=== PATIENT | female | born 1950 | race Caucasian/White ===

== ENCOUNTER 2016-09-27 06:50 | Inpatient (IN) | payer MEDICARE, OTHER ==
[2016-09-22 16:03] LABS: BASOPHILS 0.5 %; BASOPHILS ABSOLUTE 0.05 10/3/uL (0.0-0.16); EOSINOPHILS 2.4 %; EOSINOPHILS ABSOLUTE 0.25 10/3/uL (0.0-0.53); HEMATOCRIT 36.4 % (36.0-48.0); HEMOGLOBIN 12.1 g/dL (12.0-16.0); IMMATURE GRANULOCYTES 0.2 %; IMMATURE GRANULOCYTES ABSOLUTE 0.02 10/3/uL (0.0-0.11); LYMPHOCYTES 25.7 %; LYMPHOCYTES ABSOLUTE 2.66 10/3/uL (0.67-4.30); MEAN CORPUS HGB CONC 33.2 g/dL (32.0-36.0); MEAN CORPUSCULAR HEMOGLOB 30.6 pg (26.0-34.0); MEAN CORPUSCULAR VOLUME 92.2 fL (80-100); MEAN PLATELET VOLUME 10.4 fL (9.2-13.0); MONOCYTES 7.9 %; MONOCYTES ABSOLUTE 0.82 10/3/uL (0.21-1.20); NEUTROPHILS 63.3 %; NEUTROPHILS ABSOLUTE 6.56 10/3/uL (2.02-8.40); PLATELET COUNT 310 10/3/uL (150-400); RBC DISTRIBUTION WIDTH 13.4 % (12.0-16.0); RED CELL COUNT 3.95 10/6/uL (4.0-5.6); WHITE BLOOD CELLS 10.4 10/3/uL (4.5-10.5)
[2016-09-22 16:09] LABS: CALCIUM, SERUM 9.7 MG/DL (8.5-10.4); CHLORIDE, SERUM 108 MMOL/L (96-112); CO2 (CARBON DIOXIDE) 26 MMOL/L (24-34); GFR AFRICAN AMERICAN 104 ML/MIN (>=60); GFR NON AFRICAN AMERICAN 90 ML/MIN (>=60); GLUCOSE, SERUM 98 MG/DL (60-99)
[2016-09-22 16:10] LABS: BUN (BLOOD UREA NITROGEN) 6 MG/DL (6-23); CREATININE 0.69 MG/DL (0.55-1.02); PARTIAL THROMBO TIME 30.2 SEC (22.5-37.2); POTASSIUM, SERUM 3.8 MMOL/L (3.5-5.3); PROTIME (NOT ORD) 12.8 SEC (12.0-14.5); SODIUM, SERUM 144 MMOL/L (135-148)
[2016-09-22 16:14] LABS: MANUAL DIFF NO %
--- NOTE | ~2016-09-27 | OP ---
Record Of Operation [facility] [address] [place]. [address] NAME: PRAFUL GEE : 49 STATUS : ADM IN PAT#: [id number] AGE: 66 ADM/REG DATE : 09/27/16 MR#: [id number] REPORT SERV DATE: 09/27/16 DICTATED BY: SACHA DICKSON DATE: 09/27/16 REPORT STATUS : Draft TRANSCRIBED BY: MODL DATE: 09/27/16 DATE OF PROCEDURE: 09/27/2016 PREOPERATIVE DIAGNOSIS: Left renal mass. POSTOPERATIVE DIAGNOSIS: Left renal mass. PROCEDURE: Laparoscopic left nephrectomy. SURGEON: Sacha Dickson M.D. JIGGER CROWN POUNCING MACHINE OPERATOR: Estuardo Salcedo. ANESTHESIA: General. BLOOD LOSS: Estimated at 50 mL. FLUID REPLACEMENT: 1.7 L of crystalloid. DRAINS: 16-St Helenian Dickson catheter per urethra. INDICATION: A 66-year-old white female with a 4 cm left upper pole renal mass that encroaches renal hilum. TECHNIQUE: The patient was identified, brought to the operating room, administered general anesthetic agent by the Anesthesia Service, and intubated. She was laid into the left flank position with the right flank down, the left flank elevated, the kidney rest elevated, and table flexed. She was appropriately padded and secured to the table. A 16-St Helenian Dickson catheter was then passed into the bladder and left for drainage. She was prepped and draped in usual sterile fashion. A three-port technique was used. The first port was a balloon port, placed with the Deandre technique in the left lower quadrant of the abdomen. Once that port was in position, a 10 mm laparoscope was inserted. There were some adhesions between a previous mesh abdominal wall hernia repair and the omentum. These were taken down sharply. I cleared off the space cephalad to the first port and that was above the umbilicus to the left of midline. I then placed a 10 mm port through here. Then, I found a place just lateral to the original port and placed a 10 mm port through there. Once the ports were in position, I continued on with the case. The left colon was mobilized by incising the avascular line of Toldt from the pelvis all the way up around the hepatic flexure. The psoas muscle was identified. Then, the left ureter and gonadal vessels were identified. The ureter and the vessels were elevated and I began to dissect up along the psoas muscle, elevating the tissue above me in the kidney. I the mesentery of the colon from the Gerota fascia. I opened the Gerota fascia near the hilum and exposed the renal hilum. Some small branches were taken with a Harmonic scalpel. The renal hilum was exposed. A rather large lumbar vessel was coming off the left renal vein. It was clipped proximally and then transected with the Harmonic scalpel. I Record Of Operation [place] [id number] [facility] [place]. [address] NAME: PRAFUL GEE : 49 STATUS : ADM IN PAT#: [id number] AGE: 66 ADM/REG DATE : 09/27/16 MR#: [id number] REPORT SERV DATE: 09/27/16 DICTATED BY: SACHA DICKSON DATE: 09/27/16 REPORT STATUS : Draft TRANSCRIBED BY: MODL DATE: 09/27/16 dissected up above the space between the spleen and the upper pole of the kidney. Once I had the hilum isolated, I used the laparoscopic ALICIA stapler and stapled across the hilum. I then completed my dissection in the upper pole between the left adrenal gland and the upper pole. Finally, I took the attachments of the kidney laterally, and then the gonadal vessels were clipped and the ureter was clipped and then transected. The specimen was placed into a specimen retrieval bag and held for later retrieval. I irrigated the renal fossa. Fastidious hemostasis had been maintained through the entire case. I lowered the abdominal pressure down to 7 mmHg. No bleeding from the hilum or the adrenal gland was noted. I had placed the specimen into a specimen retrieval bag. The superior port was removed, and the fascia there was closed with Heath-Aram endoscopic closure system. I then lowered the pressure completely and removed the other two ports. I extended the incision between the two lower ports and then delivered the specimen out through that wound. I then closed the internal oblique with running 0 PDS and then external oblique with running 0 PDS. The subcutaneous tissue was irrigated copiously and closed with 3-0 Vicryl, and the skin was closed with 4-0 Monocryl. Dressings were applied. The catheter was secured. The patient was awakened and taken to the recovery unit in stable and satisfactory condition. PF/MODL Sacha Dickson M.D. / [id number] CC: Sacha Dickson M.D.
--- NOTE | ~2016-09-27 | PREOPHP ---
PreOp History and Physical [place] [address] [place]. [address] NAME: PRAFUL GEE : 49 STATUS : PRE IN PAT#: [id number] AGE: 66 ADM/REG DATE : MR#: [id number] REPORT SERV DATE: 09/26/16 DICTATED BY: SACHA PAVON DATE: 09/26/16 REPORT STATUS : Draft TRANSCRIBED BY: MODL DATE: 09/26/16 CHIEF COMPLAINT: Left renal mass. HISTORY OF PRESENT ILLNESS: 66-year-old white female, who had an episode of abdominal pain which resulted in a CT scan of the abdomen and pelvis. It revealed a 4 cm left upper pole renal mass. She subsequently had a craniotomy for meningioma. She has recovered from that and is now going to have a left radical nephrectomy for the suspected renal cell carcinoma. The patient denies any flank pain or gross hematuria. She has occasional urinary tract infection. She has pelvic floor prolapse and has had pelvic floor surgery. PAST MEDICAL HISTORY: Includes hypertension, dyslipidemia, back pain, and meningioma. PAST SURGICAL HISTORY: Craniotomy, abdominal hysterectomy, pelvic floor reconstruction, cholecystectomy, and umbilical hernia repair. MEDICATIONS: Levetiracetam, ropinirole, buspirone, omeprazole, ondansetron, colestipol, docusate, oxycodone, and melatonin. ALLERGIES: SULFA AND PENICILLIN. SOCIAL HISTORY: The patient was a tobacco user. She has quit in 06/2016. FAMILY HISTORY: Colon cancer. Negative for renal cell carcinoma. REVIEW OF SYSTEMS: Urinary incontinence and occasional foul-smelling urine. PHYSICAL EXAMINATION: GENERAL: She is a well-developed, well-nourished white female, in no acute distress. She has hair loss consistent with a recent craniotomy. She is awake, alert, and oriented x3. Memory appears good. HEENT: Sclerae anicteric. NECK: Supple. LUNGS: Clear. HEART: Regular rate and rhythm. ABDOMEN: Soft, nontender, no palpable abdominal masses. No hepatosplenomegaly. GENITOURINARY: Kidneys nontender, not palpable. Bladder not distended. LOWER EXTREMITIES: No deformities. IMPRESSION: 4 cm left upper pole renal mass. It encroaches on the renal hilum. It is mostly endophytic. Most likely renal cell carcinoma. PLAN: Laparoscopic left radical nephrectomy, possible open. Potential complications of bleeding, infection, renal failure requiring dialysis and injury to adjacent structures such as colon, spleen, intestine, diaphragm, pleura, lung, blood vessels, nerves, as well as bowel obstruction and complications were all explained to the patient. She manually and PreOp History and Physical [address] [address] NAME: PRAFUL GEE : 49 STATUS : PRE IN PAT#: [id number] AGE: 66 ADM/REG DATE : MR#: [id number] REPORT SERV DATE: 09/26/16 DICTATED BY: SACHA PAVON DATE: 09/26/16 REPORT STATUS : Draft TRANSCRIBED BY: FERNANDA DATE: 09/26/16 verbally consents to proceed. PF/FERNANDA Sacha Pavon M.D. / [id number] CC: Gregory Wilkerson M.D.
--- NOTE | ~2016-09-27 | CN ---
Consultation Report [facility] [address] [facility] [place]. [address] NAME: PRAFUL GEE : 49 STATUS : ADM IN PAT#: [id number] AGE: 66 ADM/REG DATE : 09/27/16 MR#: [id number] REPORT SERV DATE: 09/28/16 DICTATED BY: CAMIMARGOTH KRISTAL DATE: 09/27/16 REPORT STATUS : Draft TRANSCRIBED BY: MODL DATE: 09/27/16 CONSULTATION DATE OF CONSULTATION: 09/27/2016 REASON FOR CONSULTATION: Consulted for hypertension. REQUESTING PHYSICIAN: Dr. Quinteros central communications specialist for Dr. Sacha Pavon. IDENTIFYING DATA: 1. PCP: Dr. Jorge Gonzalez. 2. Rubber Stamp Dies Inspector: Dr. Arthur Miramontes. 3. Urologist: Dr. Sacha Pavon. 4. Orthopedist in the past: Dr. Paul Carr. HISTORY OF PRESENT ILLNESS: This is a pleasant 66-year-old female with a history of hypertension, dyslipidemia, chronic back pain, meningioma with craniotomy in 06/2016 at [facility], peripheral edema, GERD, urinary incontinence, history of hepatitis A in 1974. The patient presented to Dr. Sacha Pavon for abdominal pain for which CT of the abdomen and pelvis revealed a 4 cm left upper pole renal mass. She is admitted by Urology with left renal mass. She is status post laparoscopic left nephrectomy on 09/27/2016. The [facility] has been consulted to manage her blood pressure. The patient's history was obtained through interview with the patient, coupled with review of [employer] and [employer]. PAST MEDICAL HISTORY: 1. Hypertension. 2. Dyslipidemia. 3. Chronic back pain. 4. Meningioma of the brain. 5. Occasional UTI. 6. Peripheral edema. 7. Ulcer. 8. GERD. 9. Polyps. 10.Urinary incontinence. 11.Hepatitis A in 1974.. HOME MEDICATIONS: 1. BuSpar 5 mg p.o. twice a day p.r.n. 2. Keppra 750 mg p.o. twice a day. 3. Melatonin 3 mg tablets, two tablets p.o. at bedtime for sleep. 4. Prilosec 20 mg p.o. daily p.r.n. Consultation Report [address] [place]. [address] NAME: PRAFUL GEE : 49 STATUS : ADM IN PAT#: [id number] AGE: 66 ADM/REG DATE : 09/27/16 MR#: [id number] REPORT SERV DATE: 09/28/16 DICTATED BY: MARGOTH ALMANZA DATE: 09/27/16 REPORT STATUS : Draft TRANSCRIBED BY: FERNANDA DATE: 09/27/16 5. Zofran 4 mg p.o. every eight hours p.r.n. 6. Endocet 5/325, one tab, p.o. every six hours p.r.n. for pain. 7. Requip 0.25 mg p.o. daily p.r.n. ALLERGIES: 1. SULFA. 2. PENICILLIN. 3. MORPHINE. SHE SAYS SHE HAS AN INTOLERANCE AND PAIN IS NOT CONTROLLED WITH MORPHINE. SOCIAL HISTORY: The patient was , now for two years. She has three grown children. Lives in a multilevel home. Uses a cane, a shower chair, and an elevated toilet seat as well as a walker and states she does not use upper level of her home now. She was a previous smoker for 40 years. She states she occasionally smokes one to two cigarettes periodically, not routinely. Alcohol use, the patient drinks rarely and when she does, she usually drinks occasional beer with pizza. She still has a problem with her balance. She does get rehab at home five times a week, utilizing PT and OT. FAMILY HISTORY: Mother was positive for colon cancer. Father was positive for Alzheimer's. Family history positive for cancer, hypertension, and CVA. SURGICAL HISTORY: 1. Right arm ORIF. 2. Tubal ligation in 1974. 3. Cyst on the right shoulder removed. 4. Craniotomy for brain tumor which is a meningioma at [facility] on 06/2016. 5. Right humeral fracture, IM nailing in 03/2012. 6. Abdominal hysterectomy in 1977. 7. Pelvic floor reconstruction. 8. Cholecystectomy. 9. Ventral hernia repair. 10.Appendectomy. REVIEW OF SYSTEMS: Negative other than what is in HPI. The patient is alert and oriented x3. No shortness of breath. No nausea or vomiting. No abdominal pain. No chest pain. No fever. Displays no agitation or confusion. She states she was previously on lisinopril when she went to rehabilitation after her craniotomy surgery and she states she was taken off the lisinopril while in rehab. PHYSICAL EXAMINATION: VITAL SIGNS: From today blood pressure 185/82, respiratory rate 18, heart rate 85, temperature 97.7, O2 saturation 99% on 2 L nasal cannula. GENERAL: This is a very pleasant 66-year-old female, resting in bed, in no acute Consultation Report [address] [address] NAME: PRAFUL GEE : 49 STATUS : ADM IN PAT#: [id number] AGE: 66 ADM/REG DATE : 09/27/16 MR#: [id number] REPORT SERV DATE: 09/28/16 DICTATED BY: MARGOTH ALMANZA DATE: 09/27/16 REPORT STATUS : Draft TRANSCRIBED BY: FERNANDA DATE: 09/27/16 distress. NEURO: Her head is atraumatic, normocephalic. She is alert and oriented x3. Her cranial nerves are intact. Her mood is pleasant and appropriate. She does state that since she had a craniotomy that sometimes she gets forgetful of certain things. NECK: Supple. Trachea is midline. No JVD noted. No obvious thyromegaly or lymphadenopathy. EENT: Sclerae are nonicteric. Pupils equal and reactive to light. Nares patent. Mucous membranes moist. Tongue midline without deviation. Soft palate rises equally with phonation. CHEST: No pain with palpation. LUNGS: Clear to auscultation bilaterally. Diminished in the bases. She has normal respiratory effort. No increased work of breathing with conversation. She is encouraged to use her incentive spirometer every one hour while she is awake to prevent atelectasis and pneumonia. CARDIOVASCULAR: S1, S2 auscultation, regular rhythm with a rate at 92 at present. She will be placed on telemetry for 24 hours postop. ABDOMEN: Soft, nontender. Bowel sounds are diminished. No palpable organomegaly. EXTREMITIES: She does have some peripheral edema, small amount in her ankles. Normal distal pulses. No calf tenderness. She has SCDs intact for DVT prophylaxis. SKIN: Warm and dry. No unusual rashes or lesions. Normal color and turgor for age. PSYCH: She is pleasant and cooperative, appropriate mood and affect. SURGICAL WOUND SITE: Her dressing is clean, dry, and intact from having left lower quadrant laparoscopic nephrectomy. LABORATORY DATA: Sodium 144, potassium 3.8, chloride 108, BUN 6, creatinine 0.69, GFR 104, glucose 98, calcium 9.7. White blood cell 10.4, hemoglobin 12.1, hematocrit 36.4, platelets 310, INR 1.0. On 09/22/2016, she had an EKG that showed a normal sinus rhythm with a rate at 72 with possible left atrial enlargement. ASSESSMENT AND PLAN: 1. The Hospitalist Group was consulted for hypertension. She does have a history. She was previously on lisinopril she says while in rehab and she was taken off that medication. Her pressure is elevated at present time at 185/82. We will add hydralazine p.r.n. for systolic blood pressure greater than 160, and she will be placed on telemetry for 24 hours postoperatively. 2. History of meningioma with craniotomy. She is on medications for seizure precautions. We will continue her Keppra. 3. Gastroesophageal reflux disease. Aware. She does have a history of an ulcer with gastroesophageal reflux disease. We will continue Prilosec as needed daily. 4. The patient has a history of being a smoker, aware. She states she only rarely smokes one to two cigarettes periodically now. We will keep O2 to keep her sats 92% or greater. She will need to have continuous O2 saturation monitoring postoperatively and I also discussed smoking cessation with her. 5. Restless legs. The patient has a history of peripheral edema for which her legs bother her. We are aware. We will continue her daily dose of Requip as needed. Consultation Report [place] [address] [place]. [address] NAME: PRAFUL GEE : 49 STATUS : ADM IN PAT#: [id number] AGE: 66 ADM/REG DATE : 09/27/16 MR#: [id number] REPORT SERV DATE: 09/28/16 DICTATED BY: MARGOTH ALMANZA DATE: 09/27/16 REPORT STATUS : Draft TRANSCRIBED BY: MODL DATE: 09/27/16 6. Labs for a.m., BMP, magnesium, phosphorus, CBC, portable chest x-ray. The Hospitalist Group would like to thank you for this consultation. Let us know if we could be of any further assistance. CELENA Margoth Almanza NP / [id number] CC: Gregory Wilkerson M.D.
[~2016-09-27 06:50] MED LIST: ACETAMINOPHEN PM PO; ALLEGRA180 PO; BUSPAR5 PO; CAT1 PO; ENDOCET1 TAB PO; HYDROCHLOROT25 MG PO; KEPPRA750 MG PO; LOTE20 PO; MELA3 PO; NEXIUM40 PO; PRILO PO; REQUIP25 PO; ZOCOR20 PO; ZOFRAN4 PO; [UNRECOGNIZED DRUG - REMARK]
[2016-09-28 06:45] LABS: BASOPHILS 0.2 %; BASOPHILS ABSOLUTE 0.03 10/3/uL (0.0-0.16); EOSINOPHILS 0.1 %; EOSINOPHILS ABSOLUTE 0.01 10/3/uL (0.0-0.53); HEMATOCRIT 34.4 % (36.0-48.0); HEMOGLOBIN 11.2 g/dL (12.0-16.0); IMMATURE GRANULOCYTES 0.3 %; IMMATURE GRANULOCYTES ABSOLUTE 0.05 10/3/uL (0.0-0.11); LYMPHOCYTES 15.8 %; LYMPHOCYTES ABSOLUTE 2.34 10/3/uL (0.67-4.30); MEAN CORPUS HGB CONC 32.6 g/dL (32.0-36.0); MEAN CORPUSCULAR VOLUME 92.2 fL (80-100); MEAN PLATELET VOLUME 10.8 fL (9.2-13.0); MONOCYTES ABSOLUTE 1.34 10/3/uL (0.21-1.20); NEUTROPHILS 74.6 %; NEUTROPHILS ABSOLUTE 11.08 10/3/uL (2.02-8.40); PLATELET COUNT 256 10/3/uL (150-400); RBC DISTRIBUTION WIDTH 14.2 % (12.0-16.0); RED CELL COUNT 3.73 10/6/uL (4.0-5.6)
[2016-09-28 06:46] LABS: MANUAL DIFF NO %; WHITE BLOOD CELLS 14.9 10/3/uL (4.5-10.5)
[2016-09-28 07:01] LABS: CALCIUM, SERUM 9.2 MG/DL (8.5-10.4); CHLORIDE, SERUM 106 MMOL/L (96-112); CO2 (CARBON DIOXIDE) 24 MMOL/L (24-34); CREATININE 0.88 MG/DL (0.55-1.02); GFR AFRICAN AMERICAN 79 ML/MIN (>=60); GFR NON AFRICAN AMERICAN 68 ML/MIN (>=60); GLUCOSE, SERUM 102 MG/DL (60-99); PHOSPHORUS, SERUM 4.2 MG/DL (2.5-4.5); POTASSIUM, SERUM 4.3 MMOL/L (3.5-5.3); SODIUM, SERUM 138 MMOL/L (135-148)
[2016-09-28 07:02] LABS: BUN (BLOOD UREA NITROGEN) 12 MG/DL (6-23)
[2016-09-29 06:37] LABS: BUN (BLOOD UREA NITROGEN) 13 MG/DL (6-23); CALCIUM, SERUM 9.9 MG/DL (8.5-10.4); CHLORIDE, SERUM 103 MMOL/L (96-112); CO2 (CARBON DIOXIDE) 26 MMOL/L (24-34); CREATININE 0.91 MG/DL (0.55-1.02); GFR AFRICAN AMERICAN 76 ML/MIN (>=60); GFR NON AFRICAN AMERICAN 65 ML/MIN (>=60); GLUCOSE, SERUM 115 MG/DL (60-99); POTASSIUM, SERUM 3.8 MMOL/L (3.5-5.3); SODIUM, SERUM 139 MMOL/L (135-148)
[2016-09-29] MEDS ORDERED: HCTZ12.5 PO (12:49)
[2016-09-29] MEDS ORDERED: NORCO1 TA1 PO (12:49)
[2016-09-29] MEDS ORDERED: NORV5 PO (12:49)
== END 2016-09-29 14:04 | disposition home or self-care (01) | DRG 658 ==
LOC: SDC/OF 06:50 → PACU 11:41 → 4SO 13:49
PROVIDERS: Urology
PROC: 0TT14ZZ Resection of Left Kidney, Percutaneous Endoscopic Approach (ICD-10-PCS; principal; 2016-09-27 07:45)
DX: C64.2 Malignant neoplasm of left kidney, except renal pelvis (principal); I10 Essential (primary) hypertension; Z87.440 Personal history of urinary (tract) infections; E78.5 Hyperlipidemia, unspecified; Z79.891 Long term (current) use of opiate analgesic; Z88.0 Allergy status to penicillin; Z88.2 Allergy status to sulfonamides; Z87.891 Personal history of nicotine dependence; Z98.890 Other specified postprocedural states; G89.29 Other chronic pain; M54.9 Dorsalgia, unspecified; K21.9 Gastro-esophageal reflux disease without esophagitis; Z87.11 Personal history of peptic ulcer disease; Z86.19 Personal history of other infectious and parasitic diseases; G25.81 Restless legs syndrome
CPT/HCPCS: 36415; 71010; 80048; 83735; 84100; 85025; 85610; 85730; 86850; 86900; 86901; 88307; 93005; A9270-GY; J0360; J1170; J2250; J2405; J2710; J2795; J3010; J3370